=== PATIENT | male | born 1955 | race Caucasian/White ===

== ENCOUNTER 2019-01-02 09:11 | Inpatient (IN) ==
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
[2019-01-02] MEDS ORDERED: Naloxone 0.4 MG/ML INJ IVP PRN (14:07)
[2019-01-02] MEDS ORDERED: Ondansetron 4 MG/2 ML VIAL IVP PRN (14:07)
[2019-01-02] MEDS ORDERED: Ibuprofen 400 MG TABLET PO PRN (14:08)
[2019-01-02] MEDS ORDERED: *HR* LORazepam 2 MG/ML VIAL IVP PRN (14:12)
[2019-01-02 14:18] LABS: VBG HCO3 21 mEq/L (21-27); VBG PCO2 48 mmHg (41-51); VBG PH 7.25 pH Units (7.32-7.42); VBG PO2 88 mmHg (25-50)
[2019-01-02 14:20] LABS: Hematocrit 41.8 % (37.5-50.1); Hemoglobin 13.4 g/dL (12.9-16.9); Mean Corpuscular HGB Conc 32.1 g/dL (31.6-35.5); Mean Corpuscular Hemoglobin 28.5 pg (28.0-33.3); Mean Corpuscular Volume 88.9 fL (83.0-100.0); Mean Platelet Volume 10.7 fL (9.4-12.4); Platelet Count 210 K/mcL (140-400); Red Cell Distribution Width 13.2 % (11.5-14.5)
[2019-01-02 14:44] LABS: Bilirubin,Urine Negative (Negative); Blood,Urine Negative (Negative); Clarity,Urine Clear (Clear); Color,Urine Yellow (Yellow); Glucose,Urine (UA) >=1000 mg/dL (Normal); Ketones,Urine Negative (Negative); Leukocyte Esterase,Urine Negative (Negative); Nitrite,Urine Negative (Negative); PH,Urine 5.5 pH Units (5.0-8.0); Protein,Urine Negative (Neg-Trace); Urobilinogen,Urine Normal (Normal)
[2019-01-02 14:47] LABS: Calcium 8.8 mg/dL (8.6-10.3); Potassium 4.8 mEq/L (3.5-5.1)
[2019-01-02] MEDS ORDERED: Insulin DETEMIR 100 UNIT/ML X5UNITS SQ ONE (14:51)
[2019-01-02] MEDS ORDERED: D5% in Water 1,000 ML IVC PRN (14:51)
[2019-01-02] MEDS ORDERED: *HR* Dextrose 50 % in Water (Syg) 50 ML SYRINGE IVP PRN (14:51)
[2019-01-02] MEDS ORDERED: Dextrose Gel 15 GM/37.5 ML TUBE PO PRN ×2 (14:51)
[2019-01-02 14:57] LABS: Eosinophils # 0.2 K/mcL (0.0-0.6); Lymphocytes # 1.2 K/mcL (0.6-4.6); Neutrophils # 5.9 K/mcL (1.6-8.9); Platelet Estimate Normal (Normal)
[2019-01-02] MEDS ORDERED: 0.9 % Sodium Chloride 1,000 ML IVC SCH (15:15)
[2019-01-02] MEDS: Gabapentin 400 MG CAPSULE PO SCH ×2 (15:40→21:32)
[2019-01-02] MEDS: Insulin LISPRO 300 UNITS/3 ML VIAL SQ SCH ×2 (18:08→21:33)
[2019-01-02] MEDS: *HR* Heparin 5,000 UNIT/ML VIAL SQ SCH (18:10)
[2019-01-03] MEDS: *HR* Heparin 5,000 UNIT/ML VIAL SQ SCH ×2 (05:36→17:42)
[2019-01-03] MEDS: Insulin LISPRO 300 UNITS/3 ML VIAL SQ SCH ×4 (08:33→21:43)
[2019-01-03] MEDS: Gabapentin 400 MG CAPSULE PO SCH ×3 (08:34→21:41)
[2019-01-03] MEDS: Insulin DETEMIR 100 UNIT/ML X5UNITS SQ SCH ×2 (08:37→21:42)
[2019-01-03 09:37] LABS: BUN/Creatinine Ratio 16 (6-26); Blood Urea Nitrogen 18 mg/dL (8-23); Calcium 8.4 mg/dL (8.6-10.3); Carbon Dioxide 24 mEq/L (23-29); Chloride 106 mEq/L (98-107); Chol/HDL Ratio 3.3 (0-4.9); Cholesterol 127 mg/dL (< 200); Glucose 250 mg/dL (70-105); HDL Cholesterol 39 mg/dL (40-59); LDL Cholesterol,Calculated 63 mg/dL (0-99); Magnesium 1.6 mg/dL (1.6-2.6); Osmolality,Calculated 296 (280-300); Potassium 4.4 mEq/L (3.5-5.1); Sodium 138 mEq/L (136-145); Triglycerides 124 mg/dL (< 150); eGFR For Non-African Americans > 60 (> 60)
[2019-01-03 10:19] LABS: Estimated Average Glucose 315 mg/dl; Hemoglobin A1C 12.6 %
--- NOTE | 2019-01-03 10:20 | Internal Med Progress Note ---
<Silvia Blount - Last Filed: 01/03/19 10:25> Hospitalist Progress Note - Encounter Date of Encounter: 01/03/19 - Exam Vitals: Temp Pulse Resp BP Pulse Ox 98.4 F 87 18 144/75 98 01/03/19 07:17 01/03/19 08:40 01/03/19 08:35 01/03/19 07:17 01/03/19 08:35 - Assessment and Plan (1) DKA (diabetic ketoacidosis) Current Visit: Yes Status: Inactive (2) Diabetes mellitus Current Visit: Yes Status: Chronic (3) Hyponatremia Current Visit: Yes Status: Resolved (4) Leukocytosis Current Visit: Yes Status: Resolved (5) MARSHALL (acute kidney injury) Current Visit: Yes Status: Acute (6) DVT prophylaxis Current Visit: Yes Status: Acute (7) Obesity (BMI 30-39.9) Current Visit: Yes Status: Chronic (8) HTN (hypertension) Current Visit: Yes Status: Chronic (9) Syncopal episodes Current Visit: Yes Status: Acute (10) Seizure Current Visit: Yes Status: Suspected - Time Spent with Patient Total time spent is greater than 50% in coordination of care (as documented) at patient's floor/unit and/or counseling patient: Internal Medicine: Result - Labs CBC & Chem 7: 01/02/19 13:32 01/03/19 07:51 Labs: Short CBC 01/02/19 Range/Units 13:32 WBC 8.2 D (4.3-11.1) K/mcL Hgb 13.4 D (12.9-16.9) g/dL Hct 41.8 (37.5-50.1) % Plt Count 210 (140-400) K/mcL Neutrophils # 5.9 (1.6-8.9) K/mcL BMP 01/02/19 01/03/19 13:32 07:51 Sodium 135 L 138 Potassium 4.8 D 4.4 Chloride 104 106 Carbon Dioxide 20 L 24 BUN 31 H 18 Creatinine 1.48 H 1.14 Glucose 242 H 250 H Calcium 8.8 8.4 L Cardiac Enzymes 01/02/19 01/02/19 Range/Units 15:49 21:27 Troponin I < 0.03 < 0.03 (< 0.04) ng/mL Urine 01/02/19 Range/Units 14:20 Urine Color Yellow (Yellow) Urine Clarity Clear (Clear) Urine pH 5.5 (5.0-8.0) pH Units Ur Specific [place] 1.030 H (1.010-1.025) Urine Protein Negative (Neg-Trace) mg/dL Urine Glucose (UA) >=1000 H (Normal) mg/dL - Impressions Impressions Echocardiogram 01/02/19 14:11 Impressions: LVEF 60-65%. Normal LV chamber size, wall thickness and function. Normal right ventricular structure and function. No significant valvular dysfunction. No pulmonary hypertension. Left Ventricular Wall Motion: Rest Echo Findings All wall segments showed normal motion. Findings: Study Quality * Technically adequate exam. ECG Findings * Normal sinus rhythm. Left Ventricle * LVEF 60-65%. * Normal LV chamber size, wall thickness and systolic function. * Normal left ventricular diastolic function. Right Ventricle * Normal right ventricular structure and function. Left Atrium * Normal left atrial size. Right Atrium * Normal right atrial size. Interatrial Septum * Interatrial septum not well evaluated. * No evidence of PFO by color Doppler. Aortic Valve * Trileaflet aortic valve with normal function. * No aortic stenosis. * No aortic regurgitation. Mitral Valve * Normal mitral valve structure. * No mitral stenosis. * Trace mitral regurgitation. Tricuspid Valve * Normal tricuspid valve structure. * No tricuspid stenosis. * Trace tricuspid regurgitation. * Estimated RVSP is 15 mmHg. * Estimated RA pressure is 3 mmHg. * No pulmonary hypertension. Pulmonic Valve * Pulmonic valve is not well visualized. * No pulmonic stenosis. * Trace pulmonic regurgitation. Aorta * Normally sized aortic root. Pericardium * The pericardium appears normal. IVC * The IVC is not dilated. * > 50% respiratory change Consult Discharge Plan - Plan Referrals: Nathaniel Martin DO [Primary Care Provider] - - Attending Attestation I examined this patient and my medical decision-making was reviewed with the Resident Physician Dr Langley. I agree with the documented findings, disposition and treatment plan as described except to the extent set forth below. Mr Griffiths is admitted with DKA, MARSHALL and unresponsive episode awake, at bedside. He slept well. no nausea, emesis or abd pain. no further bms/diarrhea. denies confusion, presyncope, palpitations, chest pain. gen- alert, awake,appears stated age eyes- pupils equal round, eom intact, cv- reg rate and rhythm, normal s1,s2, no murmurs appreciated, no le edema, lungs- ctabl, no wheezing, rhonchi or crackles, nromal resp effort on room air abd- soft, non tender, non distended, + bs neuro- AAOx3, CN grossly intact, strength 5/5 throughout all ext Unresponsive episode Suspicious for seizure, rule out arrhythmia, ACS, other cardiac event, hx of orthostatic hypotension -neurology consult placed and pending -cont home gabapentin at this time pending neuro eval -MRI EEG pending -trend trops neg x3, ekg without ischemic changes, CUS, Echo pending DKA, resolved unclear etiology, ?gastroenteritis off insulin gtt -increase basal insulin, + SSI and prn hypoglycemics leukocytosis resolved with IVF suspected reactive -repeat lactate normal MARSHALL suspect prerenal 2/2 diarrhea and hyperglycemia with polyuria, resolved -avoid nephro toxins, UA + glucose Diarrhea, resolved -CT at OSH with diarrhea no colitis, monitor stool output, no imodium, IVFs Hypomagnesemia-resolved further diagnoses and plan as noted by resident <Keri Langley - Last Filed: 01/03/19 14:51> Hospitalist Progress Note - Encounter Date of Encounter: 01/03/19 Time of Encounter: 09:00 - Subjective Interval History: Patient seen and examined at bedside today. [facility], denies any seizure-like activity or syncopal episodes overnight. He states that his diarrhea has resolved, he continues to admit to some intermittent lightheadedness at rest and at exertion and not worsened by changing position. He states that he did have a mild headache however this has also resolved. He denies vision changes, change in smell, taste, dysphagia, chest pain, shortness of breath, cough, pleuritic pain, palpitations, orthopnea, paroxysmal nocturnal dyspnea, abdominal pain, constipation, hematochezia, melena, hematuria, dysuria, edema, calf pain. - Exam Vitals: Temp Pulse Resp BP Pulse Ox 98.4 F 87 18 144/75 98 01/03/19 07:17 01/03/19 08:40 01/03/19 08:35 01/03/19 07:17 01/03/19 08:35 Exam: Gen: Vitals noted. No acute distress. AAOx3, obese HEENT: PERRL/EOMI, no scleral icterus, oropharynx clear, Normocephalic, atraumatic, MMM Cardiac: RRR, no murmur, +S1/S2, radial and dorsal pedis pulses 3+ and symmetrical, no JVD Pulmonary: CTA bilaterally, no wheezes, rales or rhonchi, equal chest expansion Abdomen: Distended, soft, nontender, BS noted, no guarding, no rebound. MSK: ROM intact, no joint swelling noted Extremities: no BLE edema, no calf tenderness, no cyanosis or clubbing Neuro: A&Ox3, moves all extremities, no focal deficits, cranial nerves II through XII grossly intact Psych: Appropriate mood and behavior, pleasant - Assessment and Plan (1) Syncopal episodes Current Visit: Yes Status: Acute Assessment and Plan: Presented after unresponsive episode-patient walking to bathroom when he collapsed floor, unconscious for 5-7 minutes, possible jerking movement of hand Patient had suspected gastroenteritis with multiple episodes of diarrhea in the day previously Possible etiologies-seizure, arrhythmia, coronary syndrome, history of orthostatic hypotension MRI brain -small isointense lesion within the surface of left lateral ventricle, superior aspect, 6 mm, 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 Troponin negative 3 EKG-normal sinus rhythm, normal axis, heart rate 78, normal intervals, TN 174, QRS 98, QT 372, QTC 405. Nonspecific flattening of T waves present. No signs of ST segment elevation or depression. Orthostatic vitals positive for orthostatic hypotension Preliminary read of carotid ultrasound-bilateral nonstenotic plaques Echo-LVEF 66%, normal left ventricular chamber size, wall thickness, function. Normal right ventricular structure, function. No significant valvular dysfunction, no pulmonary hypertension. MRI brain pending EEG pending Seizure precautions Ativan if needed for seizure activity Neurology consulted (2) Seizure Current Visit: Yes Status: Suspected Assessment and Plan: Suspected See above for management (3) Diabetes mellitus Current Visit: Yes Status: Chronic Assessment and Plan: Poorly controlled Hemoglobin A1c 12.6 Recently started Trulicity in outpatient setting Continue sliding scale medium dose Continue basal insulin, levemir 40 units subcutaneous twice a day May need to continue titrating basal insulin to home dose of 50 units subcutaneous twice a day Continue to monitor closely Diabetic diet (4) DKA (diabetic ketoacidoses) Current Visit: Yes Status: Resolved Assessment and Plan: Resolved- May be secondary to syncopal episode versus seizure versus gastroenteritis Anion gap of 8 today [place] had a anion gap of 13, glucose in the 400s, pH 7.2, beta hydroxybutyric acid 0.36 Has completed fluid and insulin drip protocol Poorly controlled diabetic at baseline, hemoglobin A1c currently 12.6 Continue basal insulin and sliding scale insulin (5) Hyponatremia Current Visit: Yes Status: Resolved Assessment and Plan: Resolved At [place] sodium 131 Sodium currently 138 Suspect secondary to hyperglycemia during DKA which has resolved Continue to monitor (6) Leukocytosis Current Visit: Yes Status: Resolved Assessment and Plan: Resolved WBC 17.6 at [place] WBC decreased down to 8.2 Suspect reactionary to DKA and possible seizure Low suspicion for infection Chest x-ray negative for acute cardiopulmonary process CT abdomen showed liquid stools without evidence of colitis Blood cultures from [place] pending No longer meeting any sirs criteria Continue to monitor (7) MARSHALL (acute kidney injury) Current Visit: Yes Status: Acute Assessment and Plan: Improved Baseline creatinine 1.1 Suspect secondary to dehydration, DKA At [place]-creatinine 2.09, BUN 28 Creatinine currently 1.14, BUN 18 Patient received fluids secondary to DKA Continue to monitor renal function, avoid nephrotoxic agents, renally dose medications (8) Obesity (BMI 30-39.9) Current Visit: Yes Status: Chronic Assessment and Plan: Dietary and exercise changes (9) HTN (hypertension) Current Visit: Yes Status: Chronic DVT Prophylaxis: Subcutaneous heparin - Time Spent with Patient Total time spent is greater than 50% in coordination of care (as documented) at patient's floor/unit and/or counseling patient: Internal Medicine: Result - Labs CBC & Chem 7: 01/02/19 13:32 01/03/19 07:51 Labs: Short CBC 01/02/19 Range/Units 13:32 WBC 8.2 D (4.3-11.1) K/mcL Hgb 13.4 D (12.9-16.9) g/dL Hct 41.8 (37.5-50.1) % Plt Count 210 (140-400) K/mcL Neutrophils # 5.9 (1.6-8.9) K/mcL BMP 01/02/19 01/03/19 13:32 07:51 Sodium 135 L 138 Potassium 4.8 D 4.4 Chloride 104 106 Carbon Dioxide 20 L 24 BUN 31 H 18 Creatinine 1.48 H 1.14 Glucose 242 H 250 H Calcium 8.8 8.4 L Cardiac Enzymes 01/02/19 01/02/19 Range/Units 15:49 21:27 Troponin I < 0.03 < 0.03 (< 0.04) ng/mL Urine 01/02/19 Range/Units 14:20 Urine Color Yellow (Yellow) Urine Clarity Clear (Clear) Urine pH 5.5 (5.0-8.0) pH Units Ur Specific [place] 1.030 H (1.010-1.025) Urine Protein Negative (Neg-Trace) mg/dL Urine Glucose (UA) >=1000 H (Normal) mg/dL - Impressions Impressions Echocardiogram 01/02/19 14:11 Impressions: LVEF 60-65%. Normal LV chamber size, wall thickness and function. Normal right ventricular structure and function. No significant valvular dysfunction. No pulmonary hypertension. Left Ventricular Wall Motion: Rest Echo Findings All wall segments showed normal motion. Findings: Study Quality * Technically adequate exam. ECG Findings * Normal sinus rhythm. Left Ventricle * LVEF 60-65%. * Normal LV chamber size, wall thickness and systolic function. * Normal left ventricular diastolic function. Right Ventricle * Normal right ventricular structure and function. Left Atrium * Normal left atrial size. Right Atrium * Normal right atrial size. Interatrial Septum * Interatrial septum not well evaluated. * No evidence of PFO by color Doppler. Aortic Valve * Trileaflet aortic valve with normal function. * No aortic stenosis. * No aortic regurgitation. Mitral Valve * Normal mitral valve structure. * No mitral stenosis. * Trace mitral regurgitation. Tricuspid Valve * Normal tricuspid valve structure. * No tricuspid stenosis. * Trace tricuspid regurgitation. * Estimated RVSP is 15 mmHg. * Estimated RA pressure is 3 mmHg. * No pulmonary hypertension. Pulmonic Valve * Pulmonic valve is not well visualized. * No pulmonic stenosis. * Trace pulmonic regurgitation. Aorta * Normally sized aortic root. Pericardium * The pericardium appears normal. IVC * The IVC is not dilated. * > 50% respiratory change <Silvia Blount - Last Filed: 01/03/19 10:25> (1) DKA (diabetic ketoacidosis) Qualifiers: Diabetes mellitus type: type 2 Diabetes mellitus complication detail: without coma Qualified Code(s): E11.10 - Type 2 diabetes mellitus with ketoacidosis without coma (2) Diabetes mellitus Qualifiers: Diabetes mellitus type: type 2 Diabetes mellitus ferry terminal agent insulin use: with senior living use Diabetes mellitus complication status: with hyperglycemia Qualified Code(s): E11.65 - Type 2 diabetes mellitus with hyperglycemia; Z79.4 - FDC (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 (4) Leukocytosis Qualifiers: Leukocytosis type: unspecified Qualified Code(s): D72.829 - Elevated white blood cell count, unspecified (8) HTN (hypertension) Qualifiers: Hypertension type: essential hypertension Qualified Code(s): I10 - Essential (primary) hypertension (9) Syncopal episodes Qualifiers: Syncope type: unspecified Qualified Code(s): R55 - Syncope and collapse <Keri Langley - Last Filed: 01/03/19 14:51> (1) Syncopal episodes Qualifiers: Syncope type: unspecified Qualified Code(s): R55 - Syncope and collapse (3) Diabetes mellitus Qualifiers: Diabetes mellitus type: type 2 Diabetes mellitus senior living insulin use: with ferry terminal agent use Diabetes mellitus complication status: with hyperglycemia Qualified Code(s): E11.65 - Type 2 diabetes mellitus with hyperglycemia; Z79.4 - FDC (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 (4) DKA (diabetic ketoacidoses) Qualifiers: Diabetes mellitus type: type 2 Diabetes mellitus complication detail: without coma Qualified Code(s): E11.10 - Type 2 diabetes mellitus with ketoacidosis without coma (6) Leukocytosis Qualifiers: Leukocytosis type: unspecified Qualified Code(s): D72.829 - Elevated white blood cell count, unspecified (9) HTN (hypertension) Qualifiers: Hypertension type: essential hypertension Qualified Code(s): I10 - Essential (primary) hypertension
--- NOTE | 2019-01-03 10:21 | Electrocardiograph Report ---
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
[2019-01-03] MEDS ORDERED: Gadolinium Contrast Agent (WT Based) IV PRN (11:44)
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
--- NOTE | 2019-01-03 15:10 | EEG/EMG/Oth Biometrics Report ---
EEG Procedure Report EEG Procedure: Routine EEG Procedure Note: This is a routine 21 channel digital EEG performed utilizing 10- 20 international electrode placement system. FINDINGS: Patient has a predominant waking background frequency that is average voltage 8 to 10 Hertz alpha activity in the posterior region, normal amplitude symmetrical over the both hemispheres reactive to eyes opening and closing record continued to show alpha activity intermixed with some theta off and on, no abnormal activity recorded, predominantly no evidence of any spike wave discharges or any lateralizing abnormalities, Photic stimulation and hyperventilation did not produce any convulsive response. Intermittent EMG artifacts were noted. Stage II sleep was not achieved. Impression: Normal awake drowsy electroencephalogram. No epileptiform discharges or any other paroxysmal activities noted. ( Please note that normal EEG does not exclude the diagnosis of seizures or epilepsy, clinical correlation is suggested)
[2019-01-04 05:09] LABS: BUN/Creatinine Ratio 15 (6-26); Blood Urea Nitrogen 14 mg/dL (8-23); Calcium 8.2 mg/dL (8.6-10.3); Carbon Dioxide 25 mEq/L (23-29); Chloride 107 mEq/L (98-107); Glucose 154 mg/dL (70-105); Magnesium 1.7 mg/dL (1.6-2.6); Osmolality,Calculated 294 (280-300); Potassium 3.7 mEq/L (3.5-5.1); Sodium 140 mEq/L (136-145); eGFR For Non-African Americans > 60 (> 60)
[2019-01-04] MEDS: *HR* Heparin 5,000 UNIT/ML VIAL SQ SCH (06:16)
[2019-01-04] MEDS: Insulin LISPRO 300 UNITS/3 ML VIAL SQ SCH ×2 (08:24→12:48)
[2019-01-04] MEDS: Gabapentin 400 MG CAPSULE PO SCH ×2 (08:26→15:26)
[2019-01-04] MEDS: Insulin DETEMIR 100 UNIT/ML X5UNITS SQ SCH (08:26)
--- NOTE | 2019-01-04 12:32 | Neurology Progress Note ---
<Dariusz Rios J - Last Filed: 01/04/19 13:22> Date of Encounter: 01/04/19 Time of Encounter: 12:27 Assessment and Plan (1) Syncopal episodes Current Visit: Yes Status: Acute Clinically, patient remained stable. No return of syncope or seizure-like activity. The patient has had several episodes off and on over the last couple of years and most notably 2 over the last year. Occurred in the setting of diarrhea and sometimes with urination. Likely vasovagal phenomena. MRI brain unremarkable, MRA head and neck also unremarkable. EEG negative for epileptiform activity. No indications to start TEDs at this time. Discussed lifestyle modifications and avoidance of vasovagal triggers. Patient denies any further questions. Neurology will sign off at this time. Okay to DC at the discretion of the primary team. If he has persistent syncopal events he may need outpatient cardio consultation and tilt table studies. Qualifiers: Syncope type: unspecified Qualified Code(s): R55 - Syncope and collapse (2) Seizure Current Visit: Yes Status: Suspected Subjective Principal diagnosis: syncope Interval history: Patient seen in follow-up for syncope and seizure-like activity. Denies any return of syncopal events or seizure-like activity since admission. Neurologically, the patient is intact without any further complications since admission. MRI of the brain is unremarkable, MRI of the head of the neck also unremarkable. EEG unremarkable. Objective - Constitutional Vitals: Temp Pulse Resp BP Pulse Ox 98.0 F 72 16 152/78 96 01/04/19 10:20 01/04/19 10:20 01/04/19 10:20 01/04/19 10:20 01/04/19 10:20 Exam: Examination: General Examination: *CONSTITUTIONAL: Alert and oriented x3, no acute distress *GENERAL APPEARANCE OF PATIENT appears healthy and well groomed *EYES: pupils equal, round, reactive to light and accommodation, conjunctiva clear without masses or ulcerations, fundi normal. *CARDIOVASCULAR no peripheral edema, distal temperature normal, dorsalis pedis pulses normal. see vitals Musculoskeletal: *GAIT AND STATION normal Romberg testing, no shuffling or ataxia *ASSESSMENT OF MUSCLE STRENGTH IN THE UPPER AND LOWER EXTREMITIES bilateral deltoid, bicep, tricep, beef specialist strength, hip flexors ,anterior tibialis, dorsoflexion of the foot 5/5 *MUSCLE TONE IN THE UPPER AND LOWER EXTREMITIES normal, appropriate bulk and tone. No abnormal movements, fasciculations or atrophy identified. Neurological: *ORIENTATION to person, situation, time and place *RECURRENT AND REMOTE MEMORY intact *ATTENTION AND CONCENTRATION are normal *LANGUAGE FUNCTION no significant aphasia or dysarthia was noted. *FUND OF KNOWLEDGE aware of current events, past history, vocabulary *MENTAL attention span and concentration normal. *CN II optic fundi were normal, no papilledema noted. *CN III,IV, PERRLA extraocular eye movements were full, no nystagmus and no ptosis noted. *CN V shows normal sensation and jaw opens symmetrically. *CN VII shows normal facial movement symmetrically, upper and lower bilaterally. *CN VIII shows no significant hearing loss on exam *CN IX,,X palate elevated symmetrically *CN XI normal strength in the sternocleidomastoid muscles, symmetrical shoulder shrugging. *CN XII tongue protruded in the midline, with normal strength and movement. *SENSORY EXAMINATION light touch intact *REFLEXES: deep tendon reflexes were absent diffusely; has poorly controlled DM2 no pathological reflexes were noted. *CEREBELLAR TESTING normal finger to nose, heel/knee/bond *PAIN LEVEL 0/10 Results - Laboratory Findings CBC and BMP: 01/02/19 13:32 01/04/19 04:23 Abnormal lab findings: Abnormal lab results 12.0 % (0-4) H 01/02/19 13:32 VBG pH 7.25 pH Units (7.32-7.42) L 01/02/19 14:12 VBG pO2 88 mmHg (25-50) H 01/02/19 14:12 Sodium 135 mEq/L (136-145) L 01/02/19 13:32 Carbon Dioxide 20 mEq/L (23-29) L 01/02/19 13:32 BUN 31 mg/dL (8-23) H 01/02/19 13:32 1.48 mg/dL (0.70-1.30) H 01/02/19 13:32 Est GFR ( Amer) 58 (> 60) L 01/02/19 13:32 Est GFR (Non-Af Amer) 48 (> 60) L 01/02/19 13:32 Glucose 154 mg/dL (70-105) H 01/04/19 04:23 POC Glucose 258 mg/dL (70-99) H 01/04/19 11:33 12.6 % (-5.6) H 01/03/19 07:51 Calcium 8.2 mg/dL (8.6-10.3) L 01/04/19 04:23 Magnesium 1.4 mg/dL (1.6-2.6) L 01/02/19 13:32 39 mg/dL (40-59) L 01/03/19 07:51 Ur Specific [place] 1.030 (1.010-1.025) H 01/02/19 14:20 >=1000 mg/dL (Normal) H 01/02/19 14:20 Consult Discharge Plan - Plan Referrals: Nathaniel Martin DO [Primary Care Provider] - <Daljit Wright I - Last Filed: 01/04/19 15:47> Date of Encounter: 01/04/19 Assessment and Plan (1) Syncopal episodes Current Visit: Yes Status: Acute I have personally performed a face to face diagnostic evaluation, including HPI, EXAM, which is included in the Assesment and plan, which was discussed with Dariusz Rios CNP, I agree with the above outlined documentation. We will sign off call if needed Daljit Wright MD. NeurologyI Qualifiers: Qualified Code(s): R55 - Syncope and collapse (2) Seizure Current Visit: Yes Status: Suspected Objective - Constitutional Vitals: Temp Pulse Resp BP Pulse Ox 98.4 F 74 17 132/78 97 01/04/19 14:05 01/04/19 14:05 01/04/19 14:05 01/04/19 14:05 01/04/19 14:05 Results - Laboratory Findings CBC and BMP: 01/02/19 13:32 01/04/19 04:23 Abnormal lab findings: Abnormal lab results 12.0 % (0-4) H 01/02/19 13:32 VBG pH 7.25 pH Units (7.32-7.42) L 01/02/19 14:12 VBG pO2 88 mmHg (25-50) H 01/02/19 14:12 Sodium 135 mEq/L (136-145) L 01/02/19 13:32 Carbon Dioxide 20 mEq/L (23-29) L 01/02/19 13:32 BUN 31 mg/dL (8-23) H 01/02/19 13:32 1.48 mg/dL (0.70-1.30) H 01/02/19 13:32 Est GFR ( Amer) 58 (> 60) L 01/02/19 13:32 Est GFR (Non-Af Amer) 48 (> 60) L 01/02/19 13:32 Glucose 154 mg/dL (70-105) H 01/04/19 04:23 POC Glucose 258 mg/dL (70-99) H 01/04/19 11:33 12.6 % (-5.6) H 01/03/19 07:51 Calcium 8.2 mg/dL (8.6-10.3) L 01/04/19 04:23 Magnesium 1.4 mg/dL (1.6-2.6) L 01/02/19 13:32 39 mg/dL (40-59) L 01/03/19 07:51 Ur Specific [place] 1.030 (1.010-1.025) H 01/02/19 14:20 >=1000 mg/dL (Normal) H 01/02/19 14:20
[2019-01-04 14:19] VITALS: BP 132/78
--- NOTE | 2019-01-04 15:48 | Discharge Summary ---
<Keri Langley - Last Filed: 01/04/19 16:09> - NOTES TO OUTPATIENT PROVIDER Notes to Outpatient Provider: Patient had negative cardiac as well as neurological workup for evaluation of syncope with concern for seizure. Patient does have a stable 6 mm small isointense lesion on the superior aspect of the left lateral ventricle. Patient's syncopal episode most likely vasovagal in setting of dehydration due to diarrhea. Patient to follow up with PCP for diabetes and possible tilt table test in the future as well as with Dr. Armendariz whom he has seen in the past for possible seizure as well as to follow 6 mm lesion. No medication changes Orders not resulted at time of discharge: Pending orders 01/05/19 04:00 BMP [Basic Metabolic Panel] AM 0400 01/06/19 04:00 BMP [Basic Metabolic Panel] AM 0400 Date of Encounter: 01/04/19 Time of Encounter: 15:45 - Discharge Diagnosis (1) Syncopal episodes Priority: Primary Status: Acute Qualifiers: Syncope type: vasovagal syncope Qualified Code(s): R55 - Syncope and collapse (2) Seizure Priority: Secondary Status: Suspected (3) Diabetes mellitus Priority: Secondary Status: Chronic Qualifiers: Diabetes mellitus type: type 2 Diabetes mellitus custodial insulin use: with vermin exterminator use Diabetes mellitus complication status: with hyperglycemia Qualified Code(s): E11.65 - Type 2 diabetes mellitus with hyperglycemia; Z79.4 - exterminator termite (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 (4) DKA (diabetic ketoacidoses) Priority: Secondary Status: Resolved Qualifiers: Diabetes mellitus type: type 2 Diabetes mellitus complication detail: without coma Qualified Code(s): E11.10 - Type 2 diabetes mellitus with ketoacidosis without coma (5) Hyponatremia Priority: Secondary Status: Resolved (6) Leukocytosis Priority: Secondary Status: Resolved Qualifiers: Leukocytosis type: unspecified Qualified Code(s): D72.829 - Elevated white blood cell count, unspecified (7) MARSHALL (acute kidney injury) Priority: Secondary Status: Acute (8) Obesity (BMI 30-39.9) Priority: Secondary Status: Chronic (9) HTN (hypertension) Priority: Secondary Status: Chronic Qualifiers: Hypertension type: essential hypertension Qualified Code(s): I10 - Essential (primary) hypertension Hospital course: Mr. Griffiths is a 63 year old male who presented after a syncopal episode with bowel incontinence and possible jerking movement as witnessed by family and altered mentation after the episode. He had recent episodes of diarrhea in the days prior to episode. Past medical history of diabetes, hypertension, sleep apnea, anxiety, depression, macular degeneration. He was transferred from [facility] emergency department where he was found to have leukocytosis at 17.6, diabetic ketoacidosis with anion gap of 13, glucose in the 400s and a pH of 7.20 with beta hydroxybutyric acid of 0.36, hyponatremia with sodium of 131, hypo- magnesemia at 1.4. MARSHALL with creatinine elevated to 2.09 and BUN elevated at 28. Orthostatic vital signs were performed and found to be positive for orthostatic hypotension DKA resolved after insulin drip as well as fluid resuscitation. Patient's hemoglobin A1c elevated at 12.6. He is on home insulin and recently started Trulicity in the outpatient setting. Leukocytosis suspected to be reactionary to DKA and decreased to 8.2 after fluid resuscitation. Hyponatremia resolved and hypomagnesemia resolved after repletion. MARSHALL was suspected to be prerenal secondary to diarrhea as well as hyperglycemia and improved after fluid resuscitation. For the syncopal episode, cardiac workup included an EKG which was normal sinus rhythm with some nonspecific flattening of T waves, carotid ultrasound was performed which revealed nonstenotic plaques bilaterally, echocardiogram was performed which showed LVEF 60-65%, normal left ventricular chamber size, wall thickness and function, right ventricular normal structure and function, no significant valvular dysfunction, no pulmonary hypertension. For neurologic workup, neurology was consulted, EEG was performed which showed a normal awake, drowsy EEG, no epileptiform discharges or any other paroxysmal activities, brain MRI showed re-demonstration of the 6 mm focus of isointense signal abnormality along the superior-lateral wall of the left lateral ventricle compatible with oliver matter heterotopia, no acute infarction. MRA head and MRA neck were unremarkable. Per neurology, no need to start antiepileptic drugs at this time as neurologic workup negative at this time. Suspect that syncopal episodes are vasovagal in nature and secondary to dehydration most likely from diarrhea as well as diabetic ketoacidosis. PT OT evaluated the patient and patient has no acute needs. Patient's vital signs are stable, patient is well to discharge to home with follow-up with PCP as well as neurology. Discharge discussed with: patient - Time Spent with Patient Total time spent providing and/or coordinating discharge services: - Discharge Medications Prescriptions: Continued Dulaglutide [Trulicity] 1.5 mg SQ TH Insulin LISPRO [HumaLOG] 20 - 30 units SQ TIDWM Insulin NPH Human Isophane [Novolin N] 50 unit SQ BID Lisinopril [Zestril] 10 mg PO DAILY Amitriptyline [Elavil] 25 mg PO HS Paroxetine HCl [Paxil] 20 mg PO DAILY Gabapentin [Neurontin] 800 mg PO TID Cyclobenzaprine HCl 20 mg PO BID Home Medications: Amitriptyline [Elavil] 25 mg PO HS 10/27/16 [History] Cyclobenzaprine HCl 20 mg PO BID 10/27/16 [History] Gabapentin [Neurontin] 800 mg PO TID 10/27/16 [History] Lisinopril [Zestril] 10 mg PO DAILY 10/27/16 [History] Paroxetine HCl [Paxil] 20 mg PO DAILY 10/27/16 [History] Dulaglutide [Trulicity] 1.5 mg SQ TH 01/02/19 [History] Insulin LISPRO [HumaLOG] 20 - 30 units SQ TIDWM 01/02/19 [History] Insulin NPH Human Isophane [Novolin N] 50 unit SQ BID 01/02/19 [History] Allergies/Adverse Reactions: Allergy/AdvReac Type Severity Reaction Status Date / Time acetaminophen [From Percocet] Allergy Irritable Verified 01/02/19 04:42 oxycodone [From Percocet] Allergy Irritable Verified 11/26/16 08:40 Date of admission: 01/02/19 11:15 Primary care physician: Nathaniel Martin Consults: 01/02/19 14:11 Consult to Neurology [CONS] Routine Consulting Provider: [facility]rology [facility] Reason for Consult: Syncopal episode, suspect seizure. Previous history of seizure with Dr. Kala Lino Completed: Yes 01/03/19 11:49 Consult to Interpret Exam [CONS] Routine Consulting Provider: Daljit Wright I Consult to Interpret Exam: Interpret EEG 01/04/19 08:14 Consult to Occupational Therapy [CONS] Routine Comment: Evaluate, develop and implement POC Reason for Consult: orthostatic hypotension, gait Does patient have active BEDREST order?: No Is patient medically & hemodynamically stable?: Yes Patient assessed for mobility or mobilized this visit?: No Consult to Physical Therapy [CONS] Routine Comment: Evaluate, develop and implement POC Reason for Consult: orthostatic hypotension, gait Does patient have active BEDREST order?: No Is patient medically & hemodynamically stable?: Yes Patient assessed for mobility or mobilized this visit?: No Discharging clinician: Keri Langley Anticipated date of discharge: 01/04/19 - Constitutional Vitals: Temp Pulse Resp BP Pulse Ox 98.4 F 74 17 132/78 97 01/04/19 14:05 01/04/19 14:05 01/04/19 14:05 01/04/19 14:05 01/04/19 14:05 Exam: Gen: Vitals noted. No acute distress. AAOx3, obese, resting comfortably in bed. HEENT: PERRL/EOMI, oropharynx clear, Normocephalic, atraumatic, MMM Cardiac: RRR, no murmur, +S1/S2, radial and dorsal pedis pulses 3+ and symmetrical, no JVD Pulmonary: Distant but clear breath sounds bilaterally, no wheezes, rales or rhonchi, equal chest expansion Abdomen: Distended, soft, nontender, BS noted, no guarding, no rebound. MSK: ROM intact, no joint swelling noted Extremities: no BLE edema, no calf tenderness, no cyanosis or clubbing Neuro: A&Ox3, moves all extremities, no focal deficits, cranial nerves II through XII grossly intact Psych: Appropriate mood and behavior, pleasant - Patient Status Disposition: Home, Self-Care Condition: Good Functional capacity at discharge: independent ambulation Overall status at discharge: patient is back to baseline - Discharge Instructions Follow Up With: Sunita Armendariz MD [Partnered Physician] - (Web request entered. Office will call with date and time of appointment) Nathaniel Martin DO [Primary Care Provider] - (Web request entered. Office will call with date and time of appointment.) - Diet and Activity Activity: increase activity as tolerated Diet: diabetic diet <Silvia Blount - Last Filed: 01/04/19 19:58> Date of Encounter: 01/04/19 - Discharge Diagnosis (1) DKA (diabetic ketoacidosis) Status: Inactive Qualifiers: Diabetes mellitus type: type 2 Diabetes mellitus complication detail: without coma Qualified Code(s): E11.10 - Type 2 diabetes mellitus with ketoacidosis without coma (2) Diabetes mellitus Status: Chronic Qualifiers: Diabetes mellitus type: type 2 Diabetes mellitus vermin exterminator insulin use: with custodial use Diabetes mellitus complication status: with hyperglycemia Qualified Code(s): E11.65 - Type 2 diabetes mellitus with hyperglycemia; Z79.4 - custodial (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 (3) Hyponatremia Status: Resolved (4) Leukocytosis Status: Resolved Qualifiers: Leukocytosis type: unspecified Qualified Code(s): D72.829 - Elevated white blood cell count, unspecified (5) MARSHALL (acute kidney injury) Status: Acute (6) DVT prophylaxis Status: Acute (7) Obesity (BMI 30-39.9) Status: Chronic (8) HTN (hypertension) Status: Chronic Qualifiers: Hypertension type: essential hypertension Qualified Code(s): I10 - Essential (primary) hypertension (9) Syncopal episodes Status: Acute Qualifiers: Syncope type: vasovagal syncope Qualified Code(s): R55 - Syncope and collapse (10) Seizure Status: Suspected Hospital course: Mr. Griffiths is a 63 year old male Discharge discussed with: patient, family, social work, technical healthcare consultant - Time Spent with Patient Total time spent providing and/or coordinating discharge services: Time spent: Greater than 30 minutes (40 min) Date of admission: 01/02/19 11:15 Primary care physician: Nathaniel Martin Consults: 01/02/19 14:11 Consult to Neurology [CONS] Routine Consulting Provider: [facility] Reason for Consult: Syncopal episode, suspect seizure. Previous history of seizure with Dr. Armendariz Call Completed: Yes 01/03/19 11:49 Consult to Interpret Exam [CONS] Routine Consulting Provider: Daljit Wright I Consult to Interpret Exam: Interpret EEG 01/04/19 08:14 Consult to Physical Therapy [CONS] Routine Comment: Evaluate, develop and implement POC Reason for Consult: orthostatic hypotension, gait Does patient have active BEDREST order?: No Is patient medically & hemodynamically stable?: Yes Patient assessed for mobility or mobilized this visit?: No - Constitutional Vitals: Temp Pulse Resp BP Pulse Ox 98.4 F 74 17 132/78 97 01/04/19 14:05 01/04/19 14:05 01/04/19 14:05 01/04/19 14:05 01/04/19 14:05 - Attending Attestation I examined this patient and my medical decision-making was reviewed with the Resident Physician Dr Langley. I agree with the documented findings, disposition and treatment plan as described except to the extent set forth below. Mr Griffiths is admitted with DKA, MARSHALL and unresponsive episode. He has been evaluated by neurology. DKA and MARSHALL are resolved. He is stable for dc to home with outpt follow up awake, at bedside. He slept well. no nausea, emesis or abd pain. no further bms/diarrhea. denies confusion, presyncope, palpitations, chest pain. gen- alert, awake,appears stated age cv- reg rate and rhythm, normal s1,s2, no murmurs appreciated, no le edema, lungs- ctabl, no wheezing, rhonchi or crackles, nromal resp effort on room air abd- soft, non tender, non distended, + bs neuro- AAOx3, CN intact, strength 5/5 throughout all ext, sensation intact to light touch throughout Unresponsive episode Suspicious vasovagal episode as per neurology, less likely seizure, ruled out arrhythmia, ACS, other cardiac event, hx of orthostatic hypotension -neurology consulted- eeg neg, MRI/A stable/neg for acute findings- no AED started, suspect vasovagal, lateral ventricle mass remains 6mm and he may fu outpt, pt does not drive at baseline and instructed not to do so given syncopal episodes DKA, resolved unclear etiology, suspect 2/2 gastroenteritis -may resume his home regimen of basal insulin + trulicity on dc and fu with pcp leukocytosis resolved with IVF suspected reactive -repeat lactate normal MARSHALL suspect prerenal 2/2 diarrhea, resolved Diarrhea, resolved at OSH -CT at OSH with diarrhea no colitis pt/ot evaluated for /pt reporting unsteady gait at home and determined he has no home needs at this time further diagnoses and plan as noted by resident time spent on dc 40 min
== END 2019-01-04 17:05 | disposition home or self-care (01) | DRG 638 ==
LOC: SUATTDRO 11:15 → 2NNU 11:15 → 3ANU 01-03 22:14
PROVIDERS: ADMIT Internal Medicine; ATTEND Internal Medicine

== ENCOUNTER 2020-12-02 10:22 | Inpatient (IN) ==
[2020-12-02] MEDS ORDERED: 0.9 % Sodium Chloride 500 ML IVC STA (10:30)
[2020-12-02 11:06] LABS: Basophils # 0.1 K/mcL (0.0-0.2); Basophils % 0.4 %; Eosinophils # 0.2 K/mcL (0.0-0.6); Eosinophils % 1.3 %; Hematocrit 49.1 % (37.5-50.1); Hemoglobin 15.8 g/dL (12.9-16.9); Immature Granulocytes % 0.6 % (0-4); Lymphocytes # 1.8 K/mcL (0.6-4.6); Lymphocytes % 11.6 %; Mean Corpuscular HGB Conc 32.2 g/dL (31.6-35.5); Mean Corpuscular Hemoglobin 28.1 pg (28.0-33.3); Mean Corpuscular Volume 87.2 fL (83.0-100.0); Mean Platelet Volume 10.1 fL (9.4-12.4); Monocytes # 1.5 K/mcL (0.0-1.3); Monocytes % 9.9 %; Neutrophils # 11.5 K/mcL (1.6-8.9); Platelet Count 260 K/mcL (140-400); Red Blood Count 5.63 M/mcL (4.19-5.50); Red Cell Distribution Width 13.2 % (11.5-14.5); Segmented Neutrophils % 76.2 %; White Blood Count 15.1 K/mcL (4.3-11.1)
[2020-12-02 11:28] LABS: BUN/Creatinine Ratio 14 (6-26); Blood Urea Nitrogen 31 mg/dL (8-23); C-Reactive Protein 33 mg/L (Less than 10); Carbon Dioxide 27 mEq/L (23-29); Chloride 96 mEq/L (98-107); Glucose 278 mg/dL (70-105); Osmolality,Calculated 293 (280-300); Potassium 4.8 mEq/L (3.5-5.1); Sodium 133 mEq/L (136-145); Troponin I < 0.03 ng/mL (< 0.04); eGFR For African Americans 38 (> 60); eGFR For Non-African Americans 31 (> 60)
[2020-12-02] MEDS ORDERED: 0.9 % Sodium Chloride 1,000 ML IVC ONE ×2 (11:48→12:57)
[2020-12-02 12:54] LABS: Bilirubin,Urine Negative (Negative); Blood,Urine Negative (Negative); Clarity,Urine Clear (Clear); Color,Urine Colorless (Yellow); Glucose,Urine (UA) >=1000 mg/dL (Normal); Ketones,Urine Negative (Negative); Leukocyte Esterase,Urine Negative (Negative); Nitrite,Urine Negative (Negative); Protein,Urine Trace mg/dL (Neg-Trace); RBC,Urine 0-3 per hpf (0-3); Specific Gravity,Urine 1.011 (1.010-1.025); Squamous Epithelial Cell,Urine Few per hpf (None-Few); Urobilinogen,Urine Normal (Normal); WBC,Urine 0-3 per hpf (0-3)
[2020-12-02] MEDS ORDERED: Isovue-370 500 ML BOTTLE IVP ONE (13:13)
[2020-12-02] MEDS ORDERED: cefTRIAXone 1,000 MG in Water for inj. (sterile) 10 ML IVP STA (16:26)
[2020-12-02] MEDS ORDERED: *HR* HYDROcodone/Acet 5/325 mg TABLET PO ONE (16:31)
[2020-12-02] MEDS ORDERED: Ondansetron 4 MG/2 ML VIAL IVP ONE (16:34)
[2020-12-02] MEDS ORDERED: Ondansetron 4 MG/2 ML VIAL IVP PRN (16:48)
[2020-12-02] MEDS ORDERED: Naloxone 0.4 MG/ML INJ IVP PRN (16:48)
[2020-12-02] MEDS ORDERED: *HR* HYDROcodone/Acet 5/325 mg TABLET PO PRN (16:48)
[2020-12-02] MEDS ORDERED: *HR* OxyCODONE Immed Rel 5 MG TABLET PO PRN (16:48)
[2020-12-02] MEDS ORDERED: Acetaminophen 325 MG TABLET PO PRN (16:48)
[2020-12-02] MEDS ORDERED: Melatonin 3 MG TABLET PO PRN (16:48)
[2020-12-02] MEDS ORDERED: Morphine Sulfate 2 MG/ML SYRINGE IVP ONE (17:11)
[2020-12-02] MEDS ORDERED: Morphine Sulfate 2 MG/ML SYRINGE IVP PRN (17:19)
[2020-12-02] MEDS: 0.9 % Sodium Chloride 1,000 ML IVC SCH (18:56)
[2020-12-02] MEDS ORDERED: Insulin LISPRO 300 UNITS/3 ML VIAL SUBQ SCH (21:00)
[2020-12-03 00:44] LABS: Basophils % 0.2 %; Eosinophils # 0.1 K/mcL (0.0-0.6); Eosinophils % 0.7 %; Hematocrit 42.9 % (37.5-50.1); Immature Granulocytes % 0.3 % (0-4); Lymphocytes # 1.8 K/mcL (0.6-4.6); Lymphocytes % 13.7 %; Mean Corpuscular HGB Conc 32.4 g/dL (31.6-35.5); Mean Corpuscular Hemoglobin 28.7 pg (28.0-33.3); Mean Corpuscular Volume 88.6 fL (83.0-100.0); Mean Platelet Volume 9.8 fL (9.4-12.4); Monocytes # 1.7 K/mcL (0.0-1.3); Monocytes % 12.9 %; Neutrophils # 9.2 K/mcL (1.6-8.9); Platelet Count 202 K/mcL (140-400); Red Blood Count 4.84 M/mcL (4.19-5.50); Red Cell Distribution Width 13.2 % (11.5-14.5); Segmented Neutrophils % 72.2 %; White Blood Count 12.8 K/mcL (4.3-11.1)
[2020-12-03 00:45] LABS: INR 1.2; Prothrombin Time 14.1 Seconds (9.4-12.1)
[2020-12-03 00:47] LABS: Hemoglobin 13.9 g/dL (12.9-16.9)
[2020-12-03 00:55] LABS: Albumin 3.5 g/dL (3.5-5.7); Albumin/Globulin Ratio 1.1 (1.1-2.2); Bilirubin,Total 0.5 mg/dL (0.3-1.0); Calcium 8.5 mg/dL (8.6-10.3); Globulin 3.3 g/dL (2.4-3.5); Magnesium 1.7 mg/dL (1.6-2.6); Phosphorous 3.6 mg/dL (2.7-4.5); Potassium 4.7 mEq/L (3.5-5.1); Total Protein 6.8 g/dL (6.4-8.9)
[2020-12-03] MEDS: 0.9 % Sodium Chloride 1,000 ML IVC SCH (05:32)
[2020-12-03] MEDS: Insulin LISPRO 300 UNITS/3 ML VIAL SUBQ SCH ×3 (07:54→16:22)
[2020-12-03 08:52] LABS: Adenovirus Not Detected (Not Detect); Bordetella Pertussis Not Detected (Not Detect); Chlamydophila pneumoniae Not Detected (Not Detect); Coronavirus 229E Not Detected (Not Detect); Coronavirus HKU1 Not Detected (Not Detect); Coronavirus NL63 Not Detected (Not Detect); Coronavirus OC43 Not Detected (Not Detect); Human Metapneumovirus Not Detected (Not Detect); Human Rhinovirus/Enterovirus Not Detected (Not Detect); Influenza A Subtype 2009 H1 Not Detected (Not Detect); Influenza B Not Detected (Not Detect); Mycoplasma pneumoniae Not Detected (Not Detect); Parainfluenza Virus 1 Not Detected (Not Detect); Parainfluenza Virus 2 Not Detected (Not Detect); Parainfluenza Virus 3 Not Detected (Not Detect); Parainfluenza Virus 4 Not Detected (Not Detect); Respiratory Syncytial Virus Not Detected (Not Detect); SARS-CoV-2 Not Detected (Not Detect)
[2020-12-03] MEDS ORDERED: PARoxetine 20 MG TABLET PO SCH (09:00)
[2020-12-03] MEDS ORDERED: NIFEdipine XL (24 HR) 30 MG TAB.ER.24 PO SCH (09:00)
[2020-12-03] MEDS ORDERED: cefTRIAXone 1,000 MG in 0.9 % Sodium Chloride Mini Bag 100 ML IVPB SCH (09:00)
[2020-12-03] MEDS ORDERED: *HR* Midazolam HCl 2 MG/2 ML VIAL ONE (10:29)
[2020-12-03] MEDS ORDERED: *HR* FentaNYL (PF) 100 MCG/2 ML VIAL ONE (10:29)
[2020-12-03] MEDS ORDERED: *HR* Propofol 200 MG/20 ML VIAL IVP ONE (10:30)
[2020-12-03] MEDS ORDERED: Lidocaine -MPF 2% 2 ML VIAL ONE (10:32)
[2020-12-03] MEDS ORDERED: Ondansetron 4 MG/2 ML VIAL ONE (10:32)
[2020-12-03] MEDS ORDERED: Dexamethasone 4 MG/ML VIAL ONE (10:32)
[2020-12-03] MEDS ORDERED: Isovue-300 50ML VIAL ONE (10:36)
[2020-12-03] MEDS ORDERED: Ondansetron 4 MG/2 ML VIAL IVP PRN ×2 (11:17→13:01)
[2020-12-03] MEDS ORDERED: Naloxone 0.4 MG/ML INJ IVP PRN ×2 (11:17→13:01)
[2020-12-03] MEDS ORDERED: *HR* HYDROmorphone (PF) 1 MG/ML SYRINGE IVP PRN (11:17)
[2020-12-03] MEDS ORDERED: *HR* FentaNYL (PF) 100 MCG/2 ML VIAL IVP PRN (11:17)
[2020-12-03] MEDS ORDERED: Albuterol 2.5 MG/3 ML NEBULIZER IH PRN (11:17)
[2020-12-03] MEDS ORDERED: Nitroglycerin 0.4 MG TAB.SUBL SL PRN (11:17)
[2020-12-03] MEDS ORDERED: EPHEDrine 50 MG/ML VIAL ONE (11:59)
[2020-12-03] MEDS ORDERED: Ringers Solution, Lactated 1,000 ML ONE (12:27)
[2020-12-03] MEDS ORDERED: 0.9 % Sodium Chloride 1,000 ML IVC SCH (13:01)
[2020-12-03] MEDS ORDERED: Morphine Sulfate 2 MG/ML SYRINGE IVP PRN (13:01)
[2020-12-03] MEDS ORDERED: Melatonin 3 MG TABLET PO PRN (13:01)
[2020-12-03] MEDS ORDERED: Acetaminophen 325 MG TABLET PO PRN (13:01)
[2020-12-03] MEDS ORDERED: Dextrose Gel 15 GM/37.5 ML TUBE PO PRN ×2 (13:06)
[2020-12-03] MEDS ORDERED: D5% in Water 1,000 ML IVC PRN (13:06)
[2020-12-03] MEDS ORDERED: *HR* Dextrose 50 % in Water (Vial) 50 ML VIAL IVP PRN (13:06)
[2020-12-03] MEDS ORDERED: Insulin LISPRO 300 UNITS/3 ML VIAL SUBQ SCH (21:00)
[2020-12-04 04:21] LABS: Hemoglobin 13.5 g/dL (12.9-16.9); Mean Corpuscular HGB Conc 32.1 g/dL (31.6-35.5); Mean Corpuscular Hemoglobin 28.4 pg (28.0-33.3); Mean Corpuscular Volume 88.2 fL (83.0-100.0); Mean Platelet Volume 10.1 fL (9.4-12.4); Platelet Count 204 K/mcL (140-400); Red Blood Count 4.76 M/mcL (4.19-5.50); Red Cell Distribution Width 13.1 % (11.5-14.5); White Blood Count 10.5 K/mcL (4.3-11.1)
[2020-12-04 04:42] LABS: BUN/Creatinine Ratio 17 (6-26); Blood Urea Nitrogen 21 mg/dL (8-23); Calcium 9.2 mg/dL (8.6-10.3); Carbon Dioxide 25 mEq/L (23-29); Chloride 103 mEq/L (98-107); Glucose 298 mg/dL (70-105); Magnesium 1.6 mg/dL (1.6-2.6); Osmolality,Calculated 298 (280-300); Phosphorous 2.5 mg/dL (2.7-4.5); Potassium 4.2 mEq/L (3.5-5.1); Sodium 137 mEq/L (136-145); eGFR For African Americans > 60 (> 60); eGFR For Non-African Americans 60 (> 60)
[2020-12-04 07:31] VITALS: BP 173/84
[2020-12-04] MEDS: Insulin LISPRO 300 UNITS/3 ML VIAL SUBQ SCH (08:27)
[2020-12-04] MEDS ORDERED: PARoxetine 20 MG TABLET PO SCH (09:00)
[2020-12-04] MEDS ORDERED: NIFEdipine XL (24 HR) 30 MG TAB.ER.24 PO SCH (09:00)
[2020-12-04] MEDS ORDERED: cefTRIAXone 1,000 MG in Water for inj. (sterile) 10 ML IVP SCH (09:00)
== END 2020-12-04 10:45 | disposition home or self-care (01) | DRG 661 ==
LOC: 3ANU 10:22 → EMEROOARM 10:22 → SUATTDRO 17:00 → 3ANU 17:58
PROVIDERS: ADMIT Internal Medicine; ATTEND Internal Medicine